=== PATIENT | female | born 1965 ===

== ENCOUNTER 2018-05-20 21:55 | Emergency (ER) | payer OTHER ==
[2018-05-20 21:56] VITALS: BMI 31.0
[2018-05-20 22:33] VITALS: TEMP 98.4
[2018-05-20] MEDS ORDERED: Sodium Chloride 0.9% 1,000 ML IV STA (23:20)
--- NOTE | 2018-05-20 23:24 | ED PDOC ---
Arrival/HPI <Bird Rapp - Last Filed: 05/20/18 23:45> - General Historian: Patient - History of Present Illness Narrative History of Present Illness (Text): 05/20/18 23:21 52-year-old female with a history of back pain presents today with worsening back pain over the past 3 days. Patient states 3 days ago she was transferring her mother and twisted and felt pain in her low back. Patient states she applied ice and heat to the area without improvement. Patient states since last night she is noticed paresthesias to the vaginal area. Patient states she was incontinent of urine at night and thought that maybe she had a dream. Patient states then today she had another episode of urinary incontinence. Patient denies abdominal pain. No chest pain or shortness of breath. She is complaining of severe low back pain. Patient is complaining of numbness weakness and tingling in the right lower leg. Patient states her legs are feeling heavy. No fevers or chills. No other complaints <Palmira Oliva - Last Filed: 05/21/18 04:18> - General Chief Complaint: Back Pain Time Seen by Provider: 05/20/18 22:14 Past Medical History - Provider Review Nursing Documentation Reviewed: Yes - Travel History Have you recently traveled outside [place] w/in the past 3 mons?: No - Infectious Disease Hx of Infectious Diseases: None - Tetanus Immunization Tetanus Immunization: Unknown - Reproductive Menopause: Yes - Cardiac Hx Hypertension: Yes - Pulmonary Hx Asthma: Yes - Neurological Other/Comment: neck and back pain Due to Herniated Disc - HEENT Hx HEENT Disorder: Yes (PT DENIES) - Endocrine/Metabolic Hx Endocrine Disorders: No - Hematological/Oncological Hx Blood Transfusions: Yes Hx Blood Transfusion Reaction: No - Integumentary Hx Dermatological Disorder: No - Musculoskeletal/Rheumatological Hx Arthritis: No (PT DENIES) - Gastrointestinal Hx Diverticulitis: Yes - Genitourinary/Gynecological Other/Comment: Reports Fibroids - Psychiatric Hx Substance Use: No - Surgical History Hx Appendectomy: Yes Hx Cholecystectomy: Yes Other/Comment: Right wrist carpal tunnel - Anesthesia Hx Anesthesia: Yes Hx Anesthesia Reactions: No Hx Malignant Hyperthermia: No - Suicidal Assessment Feels Threatened In Home Enviroment: No <Palmira Oliva - Last Filed: 05/21/18 04:18> Family/Social History - Physician Review Nursing Documentation Reviewed: Yes Family/Social History: Unknown Family HX Smoking Status: Never Smoked Hx Alcohol Use: No Hx Substance Use: No Hx Substance Use Treatment: No <Palmira Oliva - Last Filed: 05/21/18 04:18> Allergies/Home Meds <Bird Rapp - Last Filed: 05/20/18 23:45> <Palmira lOiva - Last Filed: 05/21/18 04:18> Allergies/Adverse Reactions: Allergies ketorolac [From Toradol] Adverse Reaction (Verified 05/20/18 22:32) RASH Home Medications: Home Meds Medication Instructions Recorded Confirmed Ipratropium [Atrovent HFA] 1 puff IH PRN PRN 05/20/18 05/20/18 Pravastatin Sodium [Pravachol] 1 tab PO DAILY 05/20/18 05/20/18 amLODIPine [Norvasc] 1 tab PO DAILY 05/20/18 05/20/18 Review of Systems - Review of Systems Constitutional: absent: Fatigue, Fevers, Night Sweats Respiratory: absent: SOB, Cough Cardiovascular: absent: Chest Pain, Palpitations Gastrointestinal: absent: Abdominal Pain, Nausea, Vomiting Genitourinary Female: Other (urinary incontinence). absent: Dysuria, Frequency, Hematuria Musculoskeletal: Arthralgias, Back Pain Skin: absent: Rash, Pruritis Neurological: Other (right leg parasthesias, weakness, saddle parasthesias). absent: Headache, Dizziness, Gait Changes <Palmira Oliva - Last Filed: 05/21/18 04:18> Physical Exam Vital Signs Temp Pulse Resp BP Pulse Ox 05/20/18 22:24 98.4 F 96 H 18 158/96 H 98 05/20/18 22:23 98.3 F 105 H 18 158/96 H 98 <Bird Rapp - Last Filed: 05/20/18 23:45> Vital Signs Reviewed: Yes Vital Signs Temp Pulse Resp BP Pulse Ox 05/20/18 22:24 98.4 F 96 H 18 158/96 H 98 05/20/18 22:23 98.3 F 105 H 18 158/96 H 98 Temperature: Afebrile Blood Pressure: Hypertensive Pulse: Tachycardic Respiratory Rate: Normal Appearance: Positive for: Well-Appearing, Non-Toxic, Comfortable Pain Distress: None Mental Status: Positive for: Alert and Oriented X 3 - Systems Exam Head: Present: Atraumatic Mouth: Present: Moist Mucous Membranes Neck: Present: Normal Range of Motion Respiratory/Chest: Present: Clear to Auscultation, Good Air Exchange. No: Respiratory Distress, Accessory Muscle Use Cardiovascular: Present: Regular Rate and Rhythm, Normal S1, S2. No: Murmurs Abdomen: No: Tenderness, Distention, Peritoneal Signs, Rebound, Guarding Rectal: Present: Other ( decreased sensation chaparoned by FAHAD vides). No: Rectal Tenderness, Hemorrhoids, Normal Rectal Tone Genitourinary/Pelvic Exam: Present: Other (decreased sensation) Back: Present: Normal Inspection, Midline Tenderness (+ lumbar and thoracic tenderness. no edema, no erythema; no ecchymosis. ), Paraspinal Tenderness, Pain with Leg Raise, Other (no erythema) Upper Extremity: Present: Normal ROM Lower Extremity: Present: Normal ROM Neurological: Present: GCS=15, Speech Normal, Motor Func Grossly Intact, Gait Normal. No: Normal Sensory Function (decreased sensation in right leg. ), Norm Deep Tendon Reflexes (decreased on right. ) Skin: Present: Warm, Dry, Normal Color. No: Rashes Psychiatric: Present: Alert, Oriented x 3 <Palmira Oliva T - Last Filed: 05/21/18 04:18> Medical Decision Making - RAD Interpretation Radiology Orders: 05/20/18 22:54 LUMBAR SPINE W/CONTRAST [CT] Stat 05/20/18 22:56 THORACIC SPINE W/CONTRAST [CT] Stat - Medication Orders Current Medication Orders: Sodium Chloride (Sodium Chloride 0.9%) 1,000 mls @ 999 mls/hr IV .Q1H1M STA Stop: 05/21/18 00:20 Last Admin: 05/20/18 23:39 Dose: 999 mls/hr eMAR Start Stop Document 05/20/18 23:39 [place] (Rec: 05/20/18 23:40 JORemington [id number]) Intravenous Solution Start Date 05/20/18 Start Time 23:40 End Date 05/21/18 End time 00:41 Total Infusion Time 61 Discontinued Medications Acetaminophen (Tylenol 325mg Tab) 975 mg PO STAT STA Stop: 05/20/18 23:19 Last Admin: 05/20/18 23:40 Dose: 975 mg MAR Pain/Vitals Document 05/20/18 23:40 J[place] (Rec: 05/20/18 23:41 JOL [id number]) Pain Reassessment Is This A Pain ReAssessment? No Sleep Is patient sleeping during reassessment? No Presence of Pain Presence of Pain Yes Pain Scale Used Protocol: PSCALES Pain Scale Used Numeric Location Upper or Lower Lower Pain Location Body Site Back Intensity 10 Scale Used Numeric Pain Behavior Crying Guarding Restlessness Facial Grimacing Diazepam (Valium) 5 mg PO ONCE ONE Stop: 05/20/18 23:20 Last Admin: 05/20/18 23:41 Dose: 5 mg <Bird Rapp - Last Filed: 05/20/18 23:45> ED Course and Treatment: 05/20/18 23:25 52yr old female with low back pain, saddle paresthesias, urinary incontinence, right leg paresthesias x worse since last night 05/19. pt immediately seen and evaluated by dr. rapp. decreased rectal tone; decreased sensation in right leg; saddle parasthesias, right leg weakness. concerning for MRI unavailable; I spoke with [facility] night stocker, unable to get anyone from MRI to come into ER as there is no MRI security incident response engineer. will order CT thoracic spine and CT lumbar spine with IV contrast ordered alerted by RN that patient had an episode of urinary incontinence in ER. 05/21/18 02:[address] upon immediate injection of contrast patient started c/o sob/throat tightness. dr. rapp at bedside in CT; pt given epi, solu medrol 125mg, pepcid, benadryl 50mg CTs were not performed due to allergic reaction. pt reassessment; pt responded well to medications; slightly tachycardia; denies any cp or sob or throat tightness. 05/21/18 02:56 Call placed to neurosurgery; Dr. lemons; no callback. case was discussed with Neurosurgical MIGUEL Chaudhari at [facility] case discussed in depth; States there is no benefit to dry CT at this time. pt accepted to [facility]. Neurosurgical Attending Dr. Fisher; pt accepted. I was advised to give 10MG of Decadron on top of the 125mg of solumedrol that was given. advised to give 5mg of valium IV. I spoke with pharmacy, there is no IV valium available. Spoke with dr. Olsen (hospitalist) accepts admission: Will transfer to [facility] with medical admission dr. Olsen and neurosurgical consult Dr. Fisher. 05/21/18 03:40 pt does not want to be transferred to [facility] because it is too far to go alone. She states she wants to go home, get her sister and then both of them will go to [facility] ([facility] together. Pt wants to sign out against medical advise. She states her sister will drive her there. Patient has been advised to not leave the emergency room but has decided to go AGAINST MEDICAL ADVICE. The patient possesses capacity to make decisions and has voiced understanding to all my warnings of potential worsening of the condition for which medical care was sought. I have discussed all known and potential risks and consequences to the patient leaving AGAINST MEDICAL ADVICE. Patient is leaving against medical advise. AMA form signed. witness by FAHAD Vides. Pt speaks perfect luxembourgish, but primary language is turkmen; all information was translated to the patient using park interpreter Tradyo cardiovascular or nurse; engraving press operator Brit Ruth engraving press operator #[id number]. pt was made aware of risk of , disability, worsening of symptoms, paralysis, difficulty with ambulation, urinary incontinence bowel incontinence and sepsis. Patient was made aware of my concern for cauda equina and the risk of complete paralysis if untreated quickly. Patient was advised by transferring her to [facility] via ambulance would get her a neurosurgical evaluation and get an MRI emergently. Patient was advised that by signing out AGAINST MEDICAL ADVICE she had increased risk of worsening symptoms potentially leading to paralysis. Patient states that she understands my concerns and understands the risks and that she is going to go to the hospital with her sister. [facility] was made aware of patient signing out AMA. They were made aware that the patient states she is going to go to the ER at [facility] on her own after she meets up with her sister. All aspects of this case were discussed the attending of record. impression; back pain, paresthesias, right leg weakness, rule out cauda equina, allergic reaction AMA Return if you wish to continue your care - RAD Interpretation Radiology Orders: 05/20/18 22:54 LUMBAR SPINE W/CONTRAST [CT] Stat 05/20/18 22:56 THORACIC SPINE W/CONTRAST [CT] Stat - Medication Orders Current Medication Orders: Acetaminophen (Tylenol 325mg Tab) 975 mg PO STAT STA Stop: 05/20/18 23:19 Diazepam (Valium) 5 mg PO ONCE ONE Stop: 05/20/18 23:20 Sodium Chloride (Sodium Chloride 0.9%) 1,000 mls @ 999 mls/hr IV .Q1H1M STA Stop: 05/21/18 00:20 <Palmira Oliva - Last Filed: 05/21/18 04:18> - PA / HEAVY EQUIPMENT TECHNICIAN / Resident Statement / has reviewed & agrees with the documentation as recorded. / has examined the patient and agrees with the treatment plan. <Brid Rapp - Last Filed: 05/20/18 23:45> Disposition/Present on Arrival <Bird Rapp - Last Filed: 05/20/18 23:45> - Present on Arrival Any Indicators Present on Arrival: No History of DVT/PE: No History of Uncontrolled Diabetes: No Urinary Catheter: No History of Decub. Ulcer: No History Surgical Site Infection Following: None - Disposition Have Diagnosis and Disposition been Completed?: Yes Disposition Time: 03:33 Patient Plan: Other (AMA) <Palmira Oliva - Last Filed: 05/21/18 04:18> - Disposition Diagnosis: Low back pain, Saddle anesthesia, Right leg weakness, Allergic reaction Disposition: AGAINST MEDICAL ADVICE Condition: CRITICAL Additional Instructions: Return immediately if you wish to continue your care. Referrals: PCP,NO [Primary Care Provider] - Follow up with primary Forms: [employer] (Danish)
[2018-05-21] MEDS ORDERED: Morphine 4 mg/ml ISec IVP STA ×3 (00:02→02:55)
[2018-05-21 00:05] LABS: BASO # 0.01 K/mm3 (0.0-2.0); BASO % 0.1 % (0.0-3.0); EOS # 0.4 (0.0-0.7); HEMOGLOBIN 11.8 g/dL (12.0-16.0); LYMPH # 1.9 (1.2-3.4); LYMPH % 14.9 % (22.0-35.0); MEAN CORPUSCULAR HEMOGLOBIN 30.6 pg (25.0-35.0); MEAN CORPUSCULAR HGB CONC 32.9 g/dl (31.0-37.0); MEAN PLATELET VOLUME 9.6 fl (7.0-11.0); MONO # 0.7 (0.1-0.6); MONO % 5.9 % (1.0-6.0); RBC 3.86 10^6/uL (3.5-6.1); RED CELL DISTRIBUTION WIDTH 12.5 % (11.5-14.5); WHITE BLOOD COUNT 12.6 10^3/uL (4.5-11.0)
[2018-05-21 00:06] LABS: ALB/GLOB RATIO 1.2 (1.1-1.8); ALBUMIN 4.6 g/dL (3.0-4.8); ALT/SGPT 51 U/L (7-56); AST/SGOT 35 U/L (14-36); BLOOD UREA NITROGEN 19 mg/dL (7-21); CALCIUM 10.1 mg/dL (8.4-10.5); GFR NON-AFRICAN AMERICAN > 60
[2018-05-21] MEDS ORDERED: EPINEPHrine 1 mg/ml (1:1000) Inj ONE (01:45)
[2018-05-21] MEDS ORDERED: DiphenhydrAMINE 50 mg/ml Inj ONE (01:45)
[2018-05-21] MEDS ORDERED: EPINEPHrine 1 mg/ml (1:1000) Inj SC STA (02:02)
[2018-05-21] MEDS ORDERED: DiphenhydrAMINE 50 mg/ml Inj IVP STA (02:02)
[2018-05-21 03:16] VITALS: BP 180/88; PULSE 110; RESP 17; O2SAT 94
--- NOTE | 2018-05-21 10:01 | RAD ---
Date of service: 05/21/2018 PROCEDURE: CHEST RADIOGRAPH, 1 VIEW HISTORY: back pain COMPARISON: None available. FINDINGS: LUNGS: Clear. PLEURA: No pneumothorax or pleural fluid seen. CARDIOVASCULAR: No aortic atherosclerotic calcification present. Normal. OSSEOUS STRUCTURES: No significant abnormalities. VISUALIZED UPPER ABDOMEN: Normal. OTHER FINDINGS: Right-sided Port-A-Cath IMPRESSION: No active disease.
== END 2018-05-21 03:30 | disposition left against medical advice (07) ==
LOC: ED 21:55
DX: T78.40XA Allergy, unspecified, initial encounter (principal); M54.5 Low back pain; R53.1 Weakness; R20.0 Anesthesia of skin; I10 Essential (primary) hypertension
CPT/HCPCS: 71045; 80053; 85025; 96361; 96372; 96374; 96375; 96376; 99285; J0171; J1100; J1200; J2270; J2930; J7030; Q9967